=== PATIENT | male | born 2000 | race American Indian/Alaskan Native ===

== ENCOUNTER 2021-09-25 21:41 | Emergency (ER) | payer SELFPAY ==
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
[2021-09-25 23:28] LABS: Hepatitis B Surface Antigen Non-Reactive (Negative); Hepatitis C Virus Antibody Non-Reactive (NonReactive)
== END 2021-09-26 00:31 ==
LOC: EDBD → ED 21:41 → EEVIPCON 21:41 → ED 09-26 00:31
DX: T14.8XXA Other injury of unspecified body region, initial encounter (principal); X95.9XXA Assault by unspecified firearm discharge, initial encounter; Y93.89 Activity, other specified; Y92.89 Other specified places as the place of occurrence of the external cause; Y99.8 Other external cause status
CPT/HCPCS: 31500; 36415; 80074; 87806; 92950; 99285